=== PATIENT | male | born 1985 | race Caucasian/White ===

== ENCOUNTER 2021-05-19 09:49 | Emergency (ER) | payer OTHER ==
[~2021-05-19] VITALS: Ht 182.8 cm; Wt 158.8 kg
[2021-05-19] MEDS ORDERED: PERCOCET 5-3251 EACH PO (12:22)
[2021-05-19] MEDS ORDERED: CYCLOBENZAPRINE5 M3 PO (12:22)
== END 2021-05-19 12:35 | disposition home or self-care (01) ==
LOC: ED 09:49
DX: S01.111A Laceration without foreign body of right eyelid and periocular area, initial encounter (principal); M25.512 Pain in left shoulder; R42 Dizziness and giddiness; V49.49XA Driver injured in collision with other motor vehicles in traffic accident, initial encounter; Y93.I9 Activity, other involving external motion; Y92.488 Other paved roadways as the place of occurrence of the external cause; Y99.8 Other external cause status